=== PATIENT | male | born 1975 | race African-American/Black ===

== ENCOUNTER → 2016-11-15 | Outpatient (CLI) | payer OTHER ==
[2014-11-07 14:37] VITALS: BP 127/72
--- NOTE | 2016-11-15 13:35 | KCIC ---
Examination: MRI of the left shoulder without contrast HISTORY: History of left shoulder pain and decreased range of motion COMPARISON: None available TECHNIQUE: Multiplanar, multisequence MR imaging of the left shoulder were performed without contrast. FINDINGS: The long head of the biceps tendon is within the bicipital groove. The attachment of the long head of the biceps tendon to the superior labrum anchor grossly appears intact. The attachment of the subscapularis tendon is intact. There is mild increased signal identified in the supraspinatus tendon likely tendinosis. There is minimal undersurface fraying of the supraspinatus tendon. The attachment of the infraspinatus tendon, teres minor tendon grossly appears intact. The supraspinatus tendon appears intact. Mild degenerative changes identified in acromioclavicular joint. The acromion is type II. The visualized labrum grossly appears unremarkable. Minimal shoulder joint effusion. The muscle bulk grossly appears unremarkable. There is obliteration of fat in the rotator interval. IMPRESSION: 1. Tendinosis supraspinatus tendon. Minimal undersurface fraying of the supraspinatus tendon. No evidence of full-thickness tear of the rotator cuff. 2. There is obliteration of fat in the rotator interval. Correlate with adhesive capsulitis. 3. Mild acromioclavicular joint degenerative changes. Electronically signed by: Marlon Staton MD (11/15/2016 1:32 PM) [id number]
== END | disposition home or self-care (01) ==
LOC: KCIC MRI 12:43
PROVIDERS: ATTEND Orthopaedic Surgery
DX: M19.012 Primary osteoarthritis, left shoulder (principal)
CPT/HCPCS: 73221

== ENCOUNTER 2017-02-09 05:22 | Emergency (ER) | payer OTHER ==
[2014-11-07 14:37] VITALS: BP 127/72
[~2017-02-09] VITALS: Ht 177.8 cm; Wt 99.8 kg
[2017-02-09] MEDS ORDERED: NAPR-695 PO (05:34)
[2017-02-09] MEDS ORDERED: CLIN150C14 PO (05:34)
--- NOTE | 2017-02-09 05:34 | PHYS DOC ---
Past Medical History Past Medical History: Other Additional Past Medical Histor: heart murmur, peptic ulcers Past Surgical History: No Surgical History Alcohol Use: None Drug Use: None Adult General Chief Complaint Chief Complaint: DENTAL PROBLEM HPI HPI Patient is a 41 year old male who presents with complaints of toothache ongoing for a day. No other complaints. Review of Systems Review of Systems Constitutional: Denies fever or chills [] Eyes: Denies change in visual acuity, redness, or eye pain [] HENT: Denies nasal congestion or sore throat . Tootache at left superior molar left side Respiratory: Denies cough or shortness of breath [] Cardiovascular: No pain GI: Denies abdominal pain, : Denies dysuria or hematuria [] Musculoskeletal: Denies back pain or joint pain [] Integument: Denies rash or skin lesions [] Neurologic: Denies headache, focal weakness or sensory changes [] Allergies Allergies Allergies Coded Allergies Type Severity Reaction Last Updated Verified Penicillins Allergy Unknown rash 09/10/13 Yes morphine Adverse Reaction Intermediate 01/19/14 Yes Physical Exam Physical Exam Constitutional: Well developed, well nourished, no acute distress, non-toxic appearance. [] HENT: Normocephalic, atraumatic, TTP at #15 no signs of abscess, oropharynx moist, no oral exudates, nose normal. [] Eyes: EOMI, conjunctiva normal, no discharge. [] Neck: Normal range of motion, no tenderness, supple, no stridor. No lad, no meningeal signs CardiovascularNormal perfusion Lungs & Thorax: No tachypnea Abdomen: Bowel sounds normal, soft, no tenderness, no masses, Skin: Warm, dry, no erythema, no rash. [] Back: Normal range of motion Extremities: No tenderness, no cyanosis,, ROM intact, no edema. [] Neurologic: Alert and oriented X 3, normal motor function, ambulates with normal gait and without assistance, no focal deficits noted. [] Psychologic: Affect normal, judgement normal, mood normal. [] EKG EKG [] Radiology/Procedures Radiology/Procedures [] Course & Med Decision Making Course & Med Decision Making Pertinent Labs and Imaging studies reviewed. (See chart for details) [] Dragon Disclaimer Dragon Disclaimer This electronic medical record was generated, in whole or in part, using a voice recognition dictation system. Departure Departure Impression: Primary Impression: Tooth ache Disposition: HOME, SELF-CARE Condition: STABLE Referrals: NO PCP (PCP) please follow up at the dental clinic today Patient Instructions: Toothache-Brief Scripts Clindamycin Hcl (CLINDAMYCIN HCL) 150 Mg Capsule 2 CAP PO TID for 7 Days, #42 CAP Prov: Lisa WEST MD 02/09/17 Naproxen (NAPROXEN) 375 Mg Tablet 1 TAB PO TID for 7 Days, #21 TAB 5 Refills Prov: Lisa WEST MD 02/09/17 Lisa WEST MD Feb 09, 2017 05:34
[2017-02-09] MEDS ORDERED: ACETAMINOPHEN 325 MG TABLET. PO ONE (05:45)
== END 2017-02-09 05:46 | disposition home or self-care (01) ==
LOC: ER 05:22
DX: K08.9 Disorder of teeth and supporting structures, unspecified (principal); Z88.1 Allergy status to other antibiotic agents; Z88.5 Allergy status to narcotic agent
CPT/HCPCS: 99283

== ENCOUNTER 2018-05-13 10:30 | Emergency (ER) | payer SELFPAY ==
[~2018-05-13] VITALS: Ht 177.8 cm; Wt 90.7 kg
[~2018-05-13 10:30] MED LIST: CLIN150C14 PO; NAPR-695 PO
[2018-05-13 10:35] VITALS: BP 0/0
--- NOTE | 2018-05-13 10:49 | PHYS DOC ---
Past Medical History Past Medical History: Other Additional Past Medical Histor: heart murmur, peptic ulcers Past Surgical History: No Surgical History Alcohol Use: None Drug Use: None Adult General Chief Complaint Chief Complaint: ABDOMINAL PAIN HPI HPI Patient is a 42 year old M P/W ABDO PAIN. As I was in the room approximately less than 1 minute I began to ask him about his symptoms he was on the phone with a partner he spent 40 seconds over the minute in the room on the cell phone before hanging up. He then became quite frustrated apparently he demanded a warm blanket as he was just being triage she was in the room only a couple of minutes according to the nursing staff is very frustrated about that. I did tell him that we would get him a warm blanket but that we also wanted to ask some questions to try to ascertain the etiology of his pain to make sure that he did not have a life-threatening condition. He swore he yelled he left before I could even review any more specific details about the workup and the plan over the desire of him to obviously leave AGAINST MEDICAL ADVICE. He left and angry condition. He appeared of sound mind he just seemed frustrated and angry and was accompanied by security on the way out. He was invited to come back any time. I did not admit to examine him he would not let me. Allergies Allergies Allergies Coded Allergies Type Severity Reaction Last Updated Verified Penicillins Allergy Unknown rash 09/10/13 Yes morphine Adverse Reaction Intermediate 01/19/14 Yes Physical Exam Physical Exam I did not get to examine the patient but he was in no respiratory distress he ambulated out of the emergency room with a steady gait he was yelling loudly I do not get to examine his abdomen EKG EKG [] Radiology/Procedures Radiology/Procedures [] Course & Med Decision Making Course & Med Decision Making Pertinent Labs and Imaging studies reviewed. (See chart for details) [] Dragon Disclaimer Dragon Disclaimer This electronic medical record was generated, in whole or in part, using a voice recognition dictation system. Departure Departure Impression: Primary Impression: Abdominal pain Disposition: 07 AGAINST MEDICAL ADVICE Condition: STABLE Referrals: NO PCP (PCP) KINGA KUNZ MD May 13, 2018 10:49
== END 2018-05-13 10:39 | disposition left against medical advice (07) ==
LOC: ER 10:30
DX: R10.30 Lower abdominal pain, unspecified (principal); Z88.0 Allergy status to penicillin; Z88.5 Allergy status to narcotic agent
CPT/HCPCS: 99281

== ENCOUNTER 2020-10-02 08:47 | Emergency (ER) | payer MEDICAID ==
[~2020-10-02] VITALS: Ht 177.8 cm; Wt 88.0 kg
[~2020-10-02 08:47] MED LIST changes: -CLIN150C14 PO; +CLIN150C15 PO
[2020-10-02] MEDS ORDERED: ONDANSETRON ODT 4 MG TAB.RAPDIS. PO ONE (09:30)
[2020-10-02] MEDS ORDERED: IV NORMAL SALINE 1000ML BAG 1,000 ML IV ONE (09:30)
[2020-10-02] MEDS ORDERED: ONDANSETRON PF 4 MG/2 ML VIAL. IVP ONE (09:30)
--- NOTE | 2020-10-02 09:43 | PHYS DOC ---
Past Medical History Past Medical History: Other Additional Past Medical Histor: ULCER Past Surgical History: No Surgical History Smoking Status: Current Every Day Smoker Alcohol Use: Occasionally Drug Use: None General Adult EDM: Chief Complaint: DIZZY/LIGHT HEADED HPI: HPI: 44-year-old -Serbian male presents to the ED with multiple complaints stating " I am dehydrated and need IV fluids." Patient reports he was recently at 2 other hospitals with the same complaints, [facility] [place] yesterday. Pt with multiple complaints - states he has nausea, that usually resolve with a hot shower. C/o dizziness but describes this as weakness. C/o nonlocalized, diffuse, abdominal pain. States he drinks alcohol but not in the past 2 days. Denies any drug use including cocaine or marijuana. Denies IVDU. Requests pain medication and IV fluids. States he needs this so he can go home and sleep. Review of Systems: Review of Systems: Constitutional: Denies fever or chills. [] Eyes: Denies change in visual acuity. [] HENT: Denies nasal congestion or sore throat. [] Respiratory: Denies cough or shortness of breath. [] Cardiovascular: Denies chest pain or edema. [] GI: Denies bloody stools or diarrhea. [] : Denies dysuria or hematuria Musculoskeletal: Denies back pain or joint pain. [] Integument: Denies rash or blistering lesions Neurologic: Denies headache, nuchal rigidity, focal weakness or sensory changes. [] Endocrine: Denies polyuria or polydipsia. [] Lymphatic: Denies swollen glands. [] Psychiatric: Denies depression or anxiety, denies SI or HI Heart Score: C/O Chest Pain: No Risk Factors: Risk Factors: DM, Current or recent (<one month) smoker, HTN, HLP, family history of CAD, obesity. Risk Scores: Score 0 - 3: 2.5% MACE over next 6 weeks - Discharge Home Score 4 - 6: 20.3% MACE over next 6 weeks - Admit for Clinical Observation Score 7 - 10: 72.7% MACE over next 6 weeks - Early Invasive Strategies Current Medications: Current Medications Medications (Trade) Dose Ordered Sig/Astrid Start Time Stop Time Status Last Admin Dose Admin Ondansetron HCl (Zofran Odt) 4 mg 1X ONCE 10/02/20 09:30 10/02/20 09:24 DC Ondansetron HCl (Zofran) 4 mg 1X ONCE 10/02/20 09:30 10/02/20 09:31 DC Sodium Chloride 1,000 ml @ 1,000 mls/hr 1X ONCE 10/02/20 09:30 10/02/20 10:29 Allergies: Allergies: Allergies Coded Allergies Type Severity Reaction Last Updated Verified Penicillins Allergy Unknown rash 09/10/13 Yes morphine Adverse Reaction Intermediate 01/19/14 Yes Physical Exam: PE: Constitutional: Well developed, well nourished, no acute distress, non-toxic appearance. HENT: Normocephalic, atraumatic, Eyes: EOMI, conjunctiva normal, no discharge. Neck: Normal range of motion, supple, no nuchal rigidity or meningismus Cardiovascular: S1/2 present, regular rhythm, no tachycardia Lungs & Thorax: Speaking in full sentences, bilateral equal chest rise, no tachypnea or increased work of breathing Abdomen: soft, no focal tenderness, no rigidity or guarding, no McBurney's point tenderness, no Scott sign, no Rovsing sign Skin: Warm, dry, no erythema, no rash, forehead diaphoresis on arrival Back: No midline tenderness, no CVA tenderness. [] Extremities: No tenderness, no cyanosis, no lower extremity edema Neurologic: Alert and oriented X 3, normal motor function, normal sensory function, no focal deficits noted. [] Psychologic: Affect normal, judgement normal, mood normal. [] Current Patient Data: Vital Signs: Vital Signs Date Time Temp Pulse Resp B/P (MAP) Pulse Ox O2 Delivery O2 Flow Rate FiO2 10/02/20 08:55 97.2 72 18 152/96 (114) 99 Room Air 97.2 EKG: EK abnormal p wave in lead 1 0933 sinus rhythm @ 65bpm, normal intervals, T wave inversion lead III, no ST elevations or ST depressions Radiology/Procedures: Radiology/Procedures: IMAGING REPORT Signed PATIENT: KYLE RAMOS ACCOUNT: [id number] : 1975 LOCATION: ER AGE: 44 SEX: M EXAM STATUS: REG ER ORD. PHYSICIAN: KARENA KEY DO REASON: dizzy, dehydrated PROCEDURE: CHEST AP ONLY XR CHEST 1V INDICATION: dizzy, dehydrated COMPARISON STUDY: None. FINDINGS: Lungs: Normal lung volume. No pulmonary mass or consolidation. The tracheobronchial tree and hilar structures are normal. Pleura: No pleural effusion or pneumothorax. Heart and Mediastinum: The cardiomediastinal silhouette is normal. The great vessels of the thorax are normal. Bones and Soft Tissues: The bones and soft tissues are within normal limits. IMPRESSION: No acute cardiopulmonary process. Electronically signed by: Carlyle Marvin MD (10/02/2020 9:50 AM) [id number] DICTATED and SIGNED BY: CARLYLE MARVIN MD DATE: 10/02/20 [id number] Course & Med Decision Making: Course & Med Decision Making Pertinent Labs and Imaging studies reviewed. (See chart for details) Concern for nausea, dehydration and poor oral intake in the setting of uncontrolled, asymptomatic hypertension. Potassium 3.2. CK slightly elevated. Normal renal function. Drug screen unremarkable. Plan was to reevaluate abdominal exam. Pt told RN he wanted to leave AMA. Pt signed form but would not wait for dc papers. Life-threatening processes were considered, pt left AMA prior to being medically cleared. Life/limb-threatening differential includes but is not limited to, acute coronary syndrome/myocardial infarction, Boerhaave's, DKA, gastrointestinal bleeding, intracranial hemorrhage, ischemic bowel, meningitis, sepsis, surgical abdomen (AAA), toxidrome (drug over/overdose/carbon monoxide, etc), ovarian/testicular torsion, trauma, or infection/sepsis. The patient has decided to leave our facility against medical advice. I have assessed patient's ability to make informed decision and feel the patient has the capacity to comprehend information regarding the current medical condition and appreciates the impact of the disease or condition and the consequences of various options for treatment, including foregoing treatment. The patient possesses the ability to evaluate all treatment options, comparing the risks and benefits of each option, communicate his or her choice in a consistent manner over time, and is able to make rational choices. I explained to the patient further testing, treatment, and evaluation I would like to perform in the emergency department visit as well as any possible alternatives that can be accomplished in a timely manner. I have outlined the possible risks of foregoing any or all of these interventions and the patient understands and acknowledges that the decision to leave may result in undesirable consequences such as , permanent disability, and/or loss of current lifestyle. RN clearly communicated the patient is welcome to return anytime to continue care at our facility. Kiera Disclaimer: Kiera Disclaimer: This electronic medical record was generated, in whole or in part, using a voice recognition dictation system. Departure Departure Impression: Primary Impression: Other disorders of electrolyte and fluid balance, not elsewhere classified Additional Impression: Left against medical advice Disposition: 07 LEFT AGAINST MEDICAL ADVICE Condition: STABLE Referrals: NO PCP (PCP) follow up with your pcp in 24 hours or FOLLOW UP WITH FAMILY MEDICINE: [address], [address] [place] [address] Patient Instructions: Dehydration, Adult, Discharge Against Medical Advice Additional Instructions: EMERGENCY DEPARTMENT GENERAL DISCHARGE INSTRUCTIONS Thank you for coming to [facility] Emergency Department (ED) today and trusting us with you care. We trust that you had a positive experience in our Emergency Department. If you wish to speak to the department management, you may call the Director at [phone]. YOUR FOLLOW UP INSTRUCTIONS ARE FOLLOWS: 1. Do you have a private Doctor? If you do not have a private doctor, please ask for a resource list of physicians or clinics that may be able to assist you with follow up care. 2. The Emergency Physicain has interpreted your x-rays. The X-Ray specialist will also review them. If there is a change in the findings, you will be notified in 48 hours when at all possible. 3. A lab test or culture has been done, your results will be reviewed and you will be notified if you need a change in treatment. ADDITIONAL INSTRUCTIONS AND INFORMATION: 1. Your care today has been supervised by a physician who is specially trained in emergency care. Many problems require more than one evaluation for a complete diagnosis and treatment. We recommend that you schedule your follow up appointment as recommended to ensure complete treatment of you illness or injury. If you are unable to obtain follow up care and continue to have a problem, or if your condition worsens, we recommend that you return to the ED. 2. We are not able to safely determine your condition over the phone nor are we able to give sound medical advice over the phone. For these safety reasons, if you call for medical advice we will ask you to come to the ED for further evaluation. 3. If you have any questions regarding these discharge instructions please call the ED at [phone]. SAFETY INFORMATION: In the interest of safety, wellness, and injury prevention; we encourage you to wear your sealbelt, if you smoke; quite smoking, and we encourage family to use a protective helmet for bicycling and other sporting events that present an increased risk for head injury. IF YOUR SYMPTOMS WORSEN OR NEW SYMPTOMS DEVELOP, OR YOU HAVE CONCERNS ABOUT YOUR CONDITION; OR IF YOUR CONDITION WORSENS WHILE YOU ARE WAITING FOR YOUR FOLLOW UP APPOINTMENT; EITHER CONTACT YOUR PRIMARY CARE DOCTOR, THE PHYSICIAN WHOSE NAME AND NUMBER YOU WERE GIVEN, OR RETURN TO THE ED IMMEDIATELY. KARENA REYNOSO DO October 02, 2020 09:43
[2020-10-02 09:53] LABS: BASO # 0.1 x10^3/uL (0.0-0.2); BASO % 1 % (0-3); EOS % 0 % (0-3); HEMATOCRIT 44.3 % (39.0-53.0); LYMPH # 2.2 x10^3/uL (1.0-4.8); LYMPH % 16 % (24-48); MEAN CORPUSCULAR HEMOGLOBIN 30 pg (25-35); MEAN CORPUSCULAR HGB CONC 34 g/dL (31-37); MEAN CORPUSCULAR VOLUME 89 fL (79-100); MONO # 1.2 x10^3/uL (0.0-1.1); MONO % 9 % (0-9); NEUT # 10.7 x10^3/uL (1.8-7.7); NEUT % 75 % (31-73); PLATELET COUNT 255 x10^3/uL (140-400); RED BLOOD COUNT 4.99 x10^6/uL (4.30-5.70); RED CELL DISTRIBUTION WIDTH 14.7 % (11.5-14.5); WHITE BLOOD COUNT 14.3 x10^3/uL (4.0-11.0)
[2020-10-02] MEDS ORDERED: HALOPERIDOL LACTATE 5 MG/ML VIAL. ONE (09:53)
--- NOTE | 2020-10-02 09:53 | RAD ---
XR CHEST 1V INDICATION: dizzy, dehydrated COMPARISON STUDY: None. FINDINGS: Lungs: Normal lung volume. No pulmonary mass or consolidation. The tracheobronchial tree and hilar st ructures are normal. Pleura: No pleural effusion or pneumothorax. Heart and Mediastinum: The cardiomediastinal silhouette is normal. The great vessels of the thorax ar e normal. Bones and Soft Tissues: The bones and soft tissues are within normal limits. IMPRESSION: No acute cardiopulmonary process. Electronically signed by: Melvin Marvin MD (10/02/2020 9:50 AM) [id number]
[2020-10-02 09:55] VITALS: BP 189/93
[2020-10-02] MEDS ORDERED: HALOPERIDOL LACTATE 5 MG/ML VIAL. IVP ONE (10:00)
[2020-10-02 10:04] LABS: CALCIUM 8.9 mg/dL (8.5-10.1); CREATININE 1.1 mg/dL (0.7-1.3); GFR 88.4; POTASSIUM 3.2 mmol/L (3.5-5.1)
[2020-10-02 10:12] LABS: ALBUMIN 4.3 g/dL (3.4-5.0); ALBUMIN/GLOBULIN RATIO 1.7 (1.0-1.7); TOTAL BILIRUBIN 0.5 mg/dL (0.2-1.0); TOTAL PROTEIN 6.9 g/dL (6.4-8.2)
[2020-10-02 10:31] LABS: BARBITURATES NEG (NEG); BENZODIAZEPINES NEG (NEG); CANNABINOIDS NEG (NEG); COCAINE NEG (NEG); METHADONE NEG (NEG); OPIATES NEG (NEG); PHENCYCLIDINE NEG (NEG)
[2020-10-02 10:32] LABS: AMPHETAMINE/METHAMPHETAMINE NEG (NEG)
[2020-10-02 10:45] LABS: BILIRUBIN,URINE NEGATIVE (NEG); CLARITY,URINE CLEAR; COLOR,URINE YELLOW; NITRITE,URINE NEGATIVE (NEG); PH,URINE 6.5 (<5.0-8.0); PROTEIN,URINE NEGATIVE (NEG-TRACE)
[2020-10-02 11:05] LABS: BACTERIA,URINE 0 /HPF (0-FEW); WBC,URINE 0 /HPF (0-4)
--- NOTE | 2020-10-02 19:13 | EKG ---
[facility] [address] [place] [address] Test Date: 2020-10-02 Test Time: 09:27:33 Pat Name: KYLE RAMOS Department: Room: Gender: M Director [place]: : 1975 Requested By: KARENA KEY Order Number: [id number] Reading MD: Measurements Intervals [place] Rate: 66 P: MD: QRS: 147 QRSD: 92 T: 161 QT: 374 QTc: 394 Interpretive Statements SINUS RHYTHM ABNORMAL RIGHT AXIS DEVIATION QRS(T) CONTOUR ABNORMALITY CONSISTENT WITH HIGH LATERAL INFARCT AGE UNDETERMINED T ABNORMALITY IN INFERIOR LEADS ABNORMAL ECG RI6.01 No previous ECG available for comparison
== END 2020-10-02 10:13 | disposition left against medical advice (07) ==
LOC: ER 08:47
DX: E87.8 Other disorders of electrolyte and fluid balance, not elsewhere classified (principal); R42 Dizziness and giddiness; R10.84 Generalized abdominal pain; R11.0 Nausea; F17.200 Nicotine dependence, unspecified, uncomplicated; Z88.0 Allergy status to penicillin; Z88.5 Allergy status to narcotic agent
CPT/HCPCS: 36415; 71045; 80053; 80307; 81001; 82010; 82550; 83690; 84484; 85025; 93005; 96374; 96375; 99285; G0480; J1630; J2405; J7030

== ENCOUNTER 2021-09-02 17:30 | Emergency (ER) | payer MEDICAID ==
[~2021-09-02 17:30] MED LIST changes: -CLIN150C15 PO; +CLIN150C16 PO
[2021-09-02] MEDS ORDERED: IBUPROFEN 200 MG TABLET. PO ONE ×2 (17:33→17:48)
--- NOTE | 2021-09-03 03:43 | RAD ---
EXAM: AP View of the chest DATE: 09/02/2021 7:03 PM INDICATION: Chest pain COMPARISON: No Prior FINDINGS: The heart is not enlarged. Mediastinal and hilar contours are normal. No focal parenchymal airspace opacity. No pleural effusion or pneumothorax. IMPRESSION: 1. No radiographic evidence for acute cardiopulmonary process. Electronically signed by: Magdy Alonzo MD (09/02/2021 8:26 PM) [place]
[2021-09-03 08:21] LABS: INFLUENZA A PATIENT NEGATIVE (NEGATIVE)
[2021-09-03 08:22] LABS: INFLUENZA B PATIENT NEGATIVE (NEGATIVE)
== END 2021-09-03 03:58 | disposition home or self-care (01) ==
LOC: ER 17:30
DX: R50.9 Fever, unspecified (principal); M79.10 Myalgia, unspecified site; Z20.822 Contact with and (suspected) exposure to COVID-19; R53.1 Weakness
CPT/HCPCS: 71045; 87428; 99284